=== PATIENT | male | born 1995 | race African-American/Black ===

== ENCOUNTER 2023-05-06 10:44 | Emergency (ER) | payer MEDICAID ==
[~2023-05-06] VITALS: Ht 188 cm; Wt 113.4 kg
[2023-05-06 10:45] VITALS: BP_SYST 131; PULSE 72; RESP 18; TEMP 98.2; O2SAT 96
[2023-05-06] MEDS ORDERED: LORazepam 2 MG/ML VIAL IVP ONE ×2 (11:00→12:45)
[2023-05-06 11:20] LABS: BASOPHILS # (AUTO) 0.1 K/uL (0.0-0.2); BASOPHILS % (AUTO) 0.6 % (0.0-2.0); EOSINOPHILS % (AUTO) 0.1 % (0.0-4.0); HEMATOCRIT 43.5 % (36-54); HEMOGLOBIN 14.4 g/dL (14.0-18.0); LYMPHOCYTES # (AUTO) 0.5 K/uL (1.0-5.5); LYMPHOCYTES % (AUTO) 4.8 % (20.5-51.5); MEAN CORPUSCULAR HEMOGLOBIN 32 pg (27-31); MEAN CORPUSCULAR HGB CONC 33 % (32-36); MEAN CORPUSCULAR VOLUME 98 fL (79.0-98.0); MONOCYTES % (AUTO) 8.9 % (1.7-9.3); NEUTROPHILS # (AUTO) 9.8 K/uL (1.8-7.7); NEUTROPHILS % (AUTO) 85.6 % (40.0-70.0); PLATELET COUNT (AUTO) 154 K/uL (130-430); RED BLOOD CELL COUNT(AUTO) 4.46 MIL/uL (4.2-6.2); RED CELL DISTRIBUTION WIDTH 14.9 % (9.0-15.0); WHITE BLOOD COUNT (AUTO) 11.4 K/uL (4.8-10.8)
[2023-05-06 11:30] LABS: ANION GAP 20 (5-15); CALCIUM 9.1 mg/dL (8.4-11.0); CARBON DIOXIDE 20 mmol/L (23-29); CHLORIDE 90 mmol/L (98-107); CREATININE 1.51 mg/dL (0.55-1.30); GFR AFRICAN AMERICAN 71 mL/min (>90); GLUCOSE 148 mg/dL (74-106); POTASSIUM 3.1 mmol/L (3.5-5.1); SODIUM SERUM 130 mmol/L (136-145); UREA NITROGEN, BLOOD 5 mg/dL (8-21)
[2023-05-06 11:32] LABS: GFR NON AFRICAN-AMERICAN 58 mL/min (>90)
[2023-05-06 11:34] LABS: ALANINE AMINOTRANSFERASE 119 U/L (12-78); ASPARTATE AMINOTRANSFERASE 225 U/L (10-37); TOTAL BILIRUBIN 1.7 mg/dL (0.0-1.0)
[2023-05-06 11:35] LABS: ALCOHOL, BLOOD < 3 mg/dL (<10)
[2023-05-06] MEDS ORDERED: NACL 0.9% 2,000 ML IV ONE ×2 (12:00→12:45)
[2023-05-06] MEDS ORDERED: BACITRACIN 1 GM OINT TP ONE (12:27)
[2023-05-06 13:00] LABS: BARBITURATE, URINE NEGATIVE (NEG <=200); BENZODIAZEPINE, URINE POSITIVE (NEG <=150); CANNABINOID, URINE POSITIVE (NEG <=50); COCAINE, URINE NEGATIVE (NEG <=150); METHAMPHETAMINES SCREEN,URINE NEGATIVE (NEG <=500); OPIATE, URINE NEGATIVE (NEG <=100); PHENCYCLIDINE SCREEN,URINE NEGATIVE (NEG <=25); UR TRICYCLIC ANTIDEPRESSANTS NEGATIVE (NEG <=300); URINE AMPHETAMINE NEGATIVE (NEG <=500); URINE METHADONE NEGATIVE (NEG <=200); URINE OXYCODONE SCREEN NEGATIVE (NEG <=100); URINE PROPOXYPHENE SCREEN NEGATIVE (NEG <=300)
[2023-05-06 15:19] VITALS: BP_SYST 142; PULSE 75; RESP 18; TEMP 98.2; O2SAT 96
== END 2023-05-06 15:18 | disposition home or self-care (01) ==
LOC: SED 10:44
DX: F10.231 Alcohol dependence with withdrawal delirium (principal); Z79.899 Other long term (current) drug therapy; Y90.6 Blood alcohol level of 120-199 mg/100 ml
CPT/HCPCS: 99285; 96374; 70450; 96361; 80307; 80053; 82009; 85025; 36415; 76376; 96376; 83605; J2060; J7030; G0482

== ENCOUNTER 2024-06-14 15:00 | Emergency (ER) | payer MEDICAID ==
[~2024-06-14] VITALS: Ht 188 cm; Wt 111.1 kg
[2024-06-14 15:00] VITALS: BP_SYST 122; PULSE 71; RESP 18; TEMP 97.2; O2SAT 100
[2024-06-14 17:20] VITALS: BP_SYST 124
== END 2024-06-14 17:30 | disposition home or self-care (01) ==
LOC: SED 15:00
DX: I10 Essential (primary) hypertension (principal)
CPT/HCPCS: 99281